=== PATIENT | male | born 1935 | race Caucasian/White ===

== ENCOUNTER 2016-09-25 10:47 | Inpatient (IN) | payer OTHER ==
[2016-09-25] MEDS ORDERED: FUROSEMIDE 20 MG TAB PO PRN (15:04)
[2016-09-25] MEDS: OXYCODONE HYDROCHLORIDE 5 MG TAB PO PRN ×2 (15:32→20:11)
[2016-09-25] MEDS ORDERED: PREDNISONE 5 MG TAB ONE (20:00)
[2016-09-25] MEDS: DOCUSATE SODIUM 100 MG SGL PO SCH (20:08)
[2016-09-25] MEDS: PREDNISONE 10 MG TAB PO SCH (20:08)
[2016-09-25] MEDS ORDERED: PREDNISONE 10 MG TAB PO SCH (21:00)
[2016-09-26] MEDS: OXYCODONE HYDROCHLORIDE 5 MG TAB PO PRN ×2 (03:55→20:24)
[2016-09-26] MEDS: ASPIRIN 81 MG CHEWABLE CTB PO SCH (10:30)
[2016-09-26] MEDS: DOCUSATE SODIUM 100 MG SGL PO SCH ×2 (10:30→20:24)
[2016-09-26] MEDS: NICOTINE 21 MG PATCH TOP SCH (10:31)
[2016-09-26] MEDS ORDERED: PREDNISONE 5 MG TAB ONE ×2 (10:39→20:22)
[2016-09-26] MEDS: PREDNISONE 10 MG TAB PO SCH ×2 (10:43→20:24)
[2016-09-27] MEDS: OXYCODONE HYDROCHLORIDE 5 MG TAB PO PRN (08:32)
[2016-09-27] MEDS: NICOTINE 21 MG PATCH TOP SCH (08:33)
[2016-09-27] MEDS: DOCUSATE SODIUM 100 MG SGL PO SCH ×2 (08:33→21:10)
[2016-09-27] MEDS: ASPIRIN 81 MG CHEWABLE CTB PO SCH (08:33)
[2016-09-27] MEDS: POLYETHYLENE GLYCOL 17 GM/1 TBS PDS PO SCH (08:34)
[2016-09-27] MEDS: MAGNESIUM HYDROXIDE 30 ML SUS PO SCH ×2 (08:34→21:10)
[2016-09-27] MEDS ORDERED: PREDNISONE 5 MG TAB ONE ×2 (08:35→21:06)
[2016-09-27] MEDS: PREDNISONE 10 MG TAB PO SCH ×2 (08:36→21:11)
[2016-09-28] MEDS ORDERED: BISACODYL 10 MG SUP PR PRN (09:05)
[2016-09-28] MEDS: NICOTINE 21 MG PATCH TOP SCH (09:44)
[2016-09-28] MEDS: POLYETHYLENE GLYCOL 17 GM/1 TBS PDS PO SCH (09:45)
[2016-09-28] MEDS: ASPIRIN 81 MG CHEWABLE CTB PO SCH (09:45)
[2016-09-28] MEDS: MAGNESIUM HYDROXIDE 30 ML SUS PO SCH ×2 (09:45→20:29)
[2016-09-28] MEDS: DOCUSATE SODIUM 100 MG SGL PO SCH ×2 (09:45→20:29)
[2016-09-28] MEDS: PREDNISONE 10 MG TAB PO SCH ×2 (09:46→20:41)
[2016-09-28] MEDS: OXYCODONE HYDROCHLORIDE 5 MG TAB PO PRN (17:01)
[2016-09-29 08:08] VITALS: PULSE 67; RESP 18; TEMP 97.6; O2SAT 95
[2016-09-29 08:09] VITALS: BP 113/73
[2016-09-29] MEDS: ASPIRIN 81 MG CHEWABLE CTB PO SCH (08:44)
[2016-09-29] MEDS: PREDNISONE 10 MG TAB PO SCH (08:44)
[2016-09-29] MEDS: POLYETHYLENE GLYCOL 17 GM/1 TBS PDS PO SCH (08:45)
[2016-09-29] MEDS: NICOTINE 21 MG PATCH TOP SCH (08:45)
[2016-09-29] MEDS: MAGNESIUM HYDROXIDE 30 ML SUS PO SCH (08:45)
[2016-09-29] MEDS: DOCUSATE SODIUM 100 MG SGL PO SCH (08:45)
[2016-09-29] MEDS: OXYCODONE HYDROCHLORIDE 5 MG TAB PO PRN (15:26)
[2016-09-30] MEDS ORDERED: PREDNISONE 10 MG TAB PO SCH (09:00)
== END 2016-09-29 15:40 | disposition home or self-care (01) | DRG 950 ==
LOC: ACUTE CARE 14:33
PROVIDERS: ADMIT Family Medicine; ATTEND Family Medicine
PROC: F01ZDFZ Gait and/or Balance Assessment using Assistive, Adaptive, Supportive or Protective Equipment (ICD-10-PCS; principal; 2016-09-25)
PROC: F01ZBZZ Bed Mobility Assessment (ICD-10-PCS; 2016-09-25)
PROC: F01ZCZZ Transfer Assessment (ICD-10-PCS; 2016-09-25)
PROC: F02Z1ZZ Dressing Assessment (ICD-10-PCS; 2016-09-25)
PROC: F02Z0ZZ Bathing/Showering Assessment (ICD-10-PCS; 2016-09-25)
PROC: F02Z3ZZ Grooming/Personal Hygiene Assessment (ICD-10-PCS; 2016-09-25)
DX: Z48.89 Encounter for other specified surgical aftercare (principal); F17.210 Nicotine dependence, cigarettes, uncomplicated; K59.00 Constipation, unspecified
CPT/HCPCS: A4450; A6232

== ENCOUNTER 2016-11-10 19:10 | Emergency (ER) | payer OTHER ==
[2016-11-10] MEDS ORDERED: KETOROLAC TROMETHAMINE 30 MG/ML SOL IM ONE (19:51)
[2016-11-10 20:06] VITALS: BP 116/74; PULSE 100; RESP 20; TEMP 97; O2SAT 99
[2016-11-10] MEDS ORDERED: KETOROLAC TROMETHAMINE 30 MG/ML SOL ONE (20:07)
== END 2016-11-10 20:35 | disposition home or self-care (01) | DRG 392 ==
LOC: ED 19:10
DX: K59.00 Constipation, unspecified (principal)
CPT/HCPCS: 74020; 99284; J1885

== ENCOUNTER 2018-05-31 08:37 | Emergency (ER) | payer OTHER ==
[2018-05-31 08:56] LABS: BASOPHILS % (AUTO) 1 % (0-3); EOSINOPHILS % (AUTO) 0 % (0-9); HEMATOCRIT 42 % (39-53); HEMOGLOBIN 13.8 gm/dl (13.5-17.7); LYMPHOCYTES % (AUTO) 7.1 % (10-50); MEAN CORPUSCULAR HEMOGLOBIN 29.7 pg (27.0-32.0); MEAN CORPUSCULAR HGB CONC 33.3 gm/dl (32.0-36.0); MEAN CORPUSCULAR VOLUME 89 fL (80-100); MONOCYTES % (AUTO) 12.6 % (0-12); NEUTROPHILS % (AUTO) 79.6 % (37-80)
[2018-05-31 08:58] VITALS: TEMP 97.3
[2018-05-31 09:09] LABS: ALBUMIN 3.1 gm/dl (3.4-5.0); BILIRUBIN,TOTAL 0.9 mg/dl (0.2-1.0); CALCIUM 8.8 mg/dl (8.5-10.1); CREATININE 1.22 mg/dl (0.80-1.30); TOTAL PROTEIN 6.9 gm/dl (6.4-8.2)
[2018-05-31 09:13] LABS: CARBON DIOXIDE 25.6 mEq/L (21-32)
[2018-05-31 09:32] LABS: APPEARANCE,URINE Clear; BILIRUBIN,URINE 1+ (NEGATIVE); COLOR,URINE Yellow; GLUCOSE, URINE (UA) NEGATIVE (NEGATIVE); KETONES,URINE TRACE (NEGATIVE); LEUKOCYTE ESTERASE ,URINE NEGATIVE (NEGATIVE); NITRATE,URINE NEGATIVE (NEGATIVE); OCCULT BLOOD,URINE TRACE LYSED (NEG-TRACE); PH,URINE 6.5
[2018-05-31 09:44] LABS: ICTOTEST,URINE NEGATIVE (NEGATIVE); RBC,URINE 0-1 (0-3AV/HPF)
[2018-05-31 09:45] LABS: BACTERIA 1+ (< 1+); CRYSTALS NEGATIVE (0-3 AVE/HPF); EPITHELIAL CELLS 0-1 (SQUAMOUS); WBC,URINE NEGATIVE (0-5AV/HPF)
[2018-05-31] MEDS ORDERED: SODIUM CHLORIDE 0.9% 1000ML 1,000 ML IV ONE (09:54)
[2018-05-31 10:36] VITALS: RESP 23
[2018-05-31 13:04] VITALS: BP 111/72; PULSE 75; O2SAT 96
== END 2018-05-31 12:52 | disposition home or self-care (01) | DRG 446 ==
LOC: ED 08:37
DX: K80.80 Other cholelithiasis without obstruction (principal)
CPT/HCPCS: 74019; 80053; 81001; 85025; 96365; 99283; 99285

== ENCOUNTER 2018-06-01 19:13 | Inpatient (IN) | payer OTHER ==
[2018-06-01 19:57] LABS: HEMATOCRIT 38 % (39-53); HEMOGLOBIN 12.1 gm/dl (13.5-17.7); MEAN CORPUSCULAR VOLUME 91 fL (80-100)
[2018-06-01 20:04] LABS: INR 1.07 (0.86-1.12)
[2018-06-01 20:13] LABS: BAND NEUTROPHILS % (MANUAL) 7 %; BASOPHILS % (MANUAL) 0 % (0-3); EOSINOPHILS % (MANUAL) 0 % (0-9); LYMPHOCYTES % (MANUAL) 5 % (10-50); MONOCYTES % (MANUAL) 4 % (0-12); NEUTROPHILS % (MANUAL) 84 % (37-80); NORMAL RBCS PRESENT
[2018-06-01 20:14] LABS: ALBUMIN 2.6 gm/dl (3.4-5.0); BILIRUBIN,TOTAL 1.1 mg/dl (0.2-1.0); CALCIUM 8.4 mg/dl (8.5-10.1); CARBON DIOXIDE 26.9 mEq/L (21-32); CREATININE 1.24 mg/dl (0.80-1.30); CRP INFLAMMATORY 11.91 mg/dl (0.00-0.33); POTASSIUM 3.7 mMol/L (3.5-5.1); TOTAL PROTEIN 6.3 gm/dl (6.4-8.2)
[2018-06-01 20:46] LABS: APPEARANCE,URINE Clear; BILIRUBIN,URINE 2+ (NEGATIVE); COLOR,URINE Amber; GLUCOSE, URINE (UA) TRACE (NEGATIVE); KETONES,URINE TRACE (NEGATIVE); LEUKOCYTE ESTERASE ,URINE NEGATIVE (NEGATIVE); NITRATE,URINE NEGATIVE (NEGATIVE); OCCULT BLOOD,URINE TRACE INTACT (NEG-TRACE); PH,URINE 5.5; UROBILINOGEN,URINE >=8.0 (0.2-1.0 EU)
[2018-06-01 20:55] LABS: ICTOTEST,URINE POSITIVE (NEGATIVE); RBC,URINE 0-2 (0-3AV/HPF)
[2018-06-01 20:56] LABS: BACTERIA 1+ (< 1+); CRYSTALS 1+ AMORPH (0-3 AVE/HPF)
[2018-06-01] MEDS ORDERED: IBUPROFEN 400 MG TAB PO PRN (22:06)
[2018-06-01] MEDS ORDERED: FUROSEMIDE 20 MG TAB PO PRN (22:06)
[2018-06-01] MEDS ORDERED: SODIUM CHLORIDE 0.9% 1000ML 1,000 ML IV ONE (22:10)
[2018-06-01] MEDS ORDERED: TEMAZEPAM 15MG 15 MG CAP PO PRN (22:13)
[2018-06-01] MEDS ORDERED: CEFTRIAXONE 1 GM PDS 1 GM in SODIUM CHLORIDE 0.9% 50 ML 50 ML IV SCH (22:15)
[2018-06-01] MEDS ORDERED: SODIUM CHLORIDE 0.9% 50 ML 50 ML IV ONE (22:40)
[2018-06-01] MEDS ORDERED: CEFTRIAXONE 1 GM PDS ONE (22:40)
[2018-06-02] MEDS ORDERED: HYDROMORPHONE 1 MG/ML SYRINGE IV PRN (00:52)
[2018-06-02] MEDS ORDERED: HYDROMORPHONE 1 MG/ML SYRINGE ONE (00:57)
[2018-06-02] MEDS: DEXTROSE/SALINE 0.45/KCL 20MEQ 1,000 ML/1,000 ML SOL IV SCH ×2 (01:04→08:56)
[2018-06-02] MEDS: KETOROLAC TROMETHAMINE 30 MG/ML SOL IV PRN ×2 (05:47→09:55)
[2018-06-02 05:52] VITALS: TEMP 97.4
[2018-06-02 07:27] LABS: ALBUMIN 2.3 gm/dl (3.4-5.0); BILIRUBIN,TOTAL 2.1 mg/dl (0.2-1.0); CALCIUM 8.4 mg/dl (8.5-10.1); CARBON DIOXIDE 24.8 mEq/L (21-32); CREATININE 1.69 mg/dl (0.80-1.30); TOTAL PROTEIN 5.6 gm/dl (6.4-8.2)
[2018-06-02 07:29] LABS: HEMATOCRIT 36 % (39-53); HEMOGLOBIN 11.8 gm/dl (13.5-17.7); MEAN CORPUSCULAR HEMOGLOBIN 29.6 pg (27.0-32.0); MEAN CORPUSCULAR HGB CONC 32.6 gm/dl (32.0-36.0); MEAN CORPUSCULAR VOLUME 91 fL (80-100)
[2018-06-02 07:36] LABS: POTASSIUM 2.9 mMol/L (3.5-5.1)
[2018-06-02 08:04] LABS: BAND NEUTROPHILS % (MANUAL) 7 %; BASOPHILS % (MANUAL) 0 % (0-3); EOSINOPHILS % (MANUAL) 1 % (0-9); LYMPHOCYTES % (MANUAL) 2 % (10-50); MONOCYTES % (MANUAL) 13 % (0-12); NEUTROPHILS % (MANUAL) 77 % (37-80); NORMAL RBCS NORMAL RBCS
[2018-06-02] MEDS ORDERED: SODIUM CHLORIDE 0.9% 1000ML 1,000 ML IV ONE ×4 (08:12→10:10)
[2018-06-02] MEDS ORDERED: POTASSIUM CHLORIDE 2 MEQ/ML 40 MEQ, LIDOCAINE HCL 1% MDV 2 ML in SODIUM CHLORIDE 0.9% 5... IV ONE (08:26)
[2018-06-02] MEDS ORDERED: LIDOCAINE HCL 1% MPF 30 SOL ONE (08:30)
[2018-06-02] MEDS ORDERED: POTASSIUM CHLORIDE 2 MEQ/ML SOL IV ONE (08:30)
[2018-06-02] MEDS ORDERED: POTASSIUM CHLORIDE 2 MEQ/ML 60 MEQ, LIDOCAINE HCL 1% MDV 2 ML in SODIUM CHLORIDE 0.9% 1... IV ONE (08:36)
[2018-06-02 08:58] VITALS: RESP 28
[2018-06-02] MEDS ORDERED: ASPIRIN 81 MG CHEWABLE CTB PO SCH (09:00)
[2018-06-02] MEDS ORDERED: PIPERACILLIN/TAZOBACT 3.375 GM 3.375 GM in SODIUM CHLORIDE 0.9% 100 ML 100 ML IV ONE (09:35)
[2018-06-02] MEDS ORDERED: PIPERACILLIN/TAZOBACT 3.375 GM PDS IV ONE (09:39)
[2018-06-02] MEDS ORDERED: NOREPINEPHRINE 4 MG/4 ML 4 MG in DEXTROSE 500 ML 500 ML IV SCH (09:45)
[2018-06-02] MEDS ORDERED: NOREPINEPHRINE BITARTRATE 4 MG/4 ML SOL IV ONE (09:51)
[2018-06-02] MEDS ORDERED: FENTANYL 100MCG/2ML SOL IV ONE (10:08)
[2018-06-02 12:03] VITALS: BP 103/72; PULSE 82; O2SAT 92
== END 2018-06-02 10:30 | disposition short-term general hospital (02) | DRG 446 ==
LOC: ED 19:13 → ACUTE CARE 21:31
PROVIDERS: ADMIT Family Medicine; ATTEND Family Medicine
DX: K81.0 Acute cholecystitis (principal); R50.9 Fever, unspecified; I10 Essential (primary) hypertension; E87.6 Hypokalemia
CPT/HCPCS: 36415; 71046; 80053; 81001; 85007; 85027; 85610; 87040; 87088; 99070; 99222; 99282; J0696; J1885; J2543; J3010; J3480; A9270-GY; J1170; J2001; J3490

== ENCOUNTER 2018-06-13 18:28 | Observation (INO) | payer OTHER ==
[2018-06-13] MEDS ORDERED: FUROSEMIDE 20mg SOL IV ONE (20:30)
[2018-06-13] MEDS: SODIUM CHLORIDE 0.9% FLUSH 10 ML SOL IV SCH (21:36)
[2018-06-13] MEDS ORDERED: IBUPROFEN 600 MG TAB PO PRN (22:50)
[2018-06-14] MEDS: SODIUM CHLORIDE 0.9% FLUSH 10 ML SOL IV SCH ×3 (06:18→23:46)
[2018-06-14 07:25] LABS: ALBUMIN 2.1 gm/dl (3.4-5.0); BILIRUBIN,TOTAL 0.4 mg/dl (0.2-1.0); CALCIUM 8.2 mg/dl (8.5-10.1); CARBON DIOXIDE 29.6 mEq/L (21-32); POTASSIUM 3.6 mMol/L (3.5-5.1); TOTAL PROTEIN 5.7 gm/dl (6.4-8.2)
[2018-06-14] MEDS ORDERED: FUROSEMIDE 40 MG SOL IV ONE (08:31)
[2018-06-14 09:18] VITALS: TEMP 97.7
[2018-06-14] MEDS: POTASSIUM CHLORIDE 10 MEQ CAPSULE PO SCH (09:18)
[2018-06-14 16:44] VITALS: O2SAT 97
[2018-06-15 00:23] VITALS: BP 120/66; PULSE 68; RESP 14
[2018-06-15] MEDS: SODIUM CHLORIDE 0.9% FLUSH 10 ML SOL IV SCH ×2 (07:26→15:04)
[2018-06-15] MEDS: POTASSIUM CHLORIDE 10 MEQ CAPSULE PO SCH (10:11)
== END 2018-06-15 15:14 | disposition home or self-care (01) | DRG 951 ==
LOC: ACUTE CARE 18:28 → INTOOBSV 18:28
PROVIDERS: ADMIT Family Medicine; ATTEND Family Medicine
DX: Z98.890 Other specified postprocedural states (principal); K75.0 Abscess of liver; R19.7 Diarrhea, unspecified; R60.9 Edema, unspecified; J44.9 Chronic obstructive pulmonary disease, unspecified
CPT/HCPCS: 36415; 80053; 82272; J1940; A6219; A9270-GY

== ENCOUNTER 2019-02-07 12:27 | Emergency (ER) | payer OTHER ==
[2019-02-07] MEDS ORDERED: SODIUM CHLORIDE 0.9% FLUSH 10 ML SOL IV PRN (12:31)
[2019-02-07] MEDS ORDERED: NITROGLYCERIN 0.4 MG TAB SL PRN (12:31)
[2019-02-07] MEDS ORDERED: ASPIRIN 81 MG CHEWABLE CTB PO STA (12:31)
[2019-02-07] MEDS ORDERED: NITROGLYCERIN 0.4 MG TAB SL ONE (12:33)
[2019-02-07] MEDS ORDERED: ASPIRIN 81 MG CHEWABLE CTB ONE (12:33)
[2019-02-07 12:34] LABS: BASOPHILS % (AUTO) 1 % (0-3); EOSINOPHILS % (AUTO) 3 % (0-9); HEMATOCRIT 42 % (39-53); HEMOGLOBIN 13.6 gm/dl (13.5-17.7); LYMPHOCYTES % (AUTO) 18.3 % (10-50); MEAN CORPUSCULAR HEMOGLOBIN 30.3 pg (27.0-32.0); MEAN CORPUSCULAR HGB CONC 32.2 gm/dl (32.0-36.0); MEAN CORPUSCULAR VOLUME 94 fL (80-100); MONOCYTES % (AUTO) 8.5 % (0-12); NEUTROPHILS % (AUTO) 69.3 % (37-80)
[2019-02-07 12:45] VITALS: TEMP 97.4
[2019-02-07 13:01] LABS: ALBUMIN 3.2 gm/dl (3.4-5.0); ALKALINE PHOSPHATASE 118 IU/L (46-116); ALT 29 IU/L (14-63); AST 15 IU/L (15-37); BILIRUBIN,TOTAL 0.3 mg/dl (0.2-1.0); BLOOD UREA NITROGEN 15 mg/dl (7-18); CALCIUM 8.5 mg/dl (8.5-10.1); CARBON DIOXIDE 27.4 mEq/L (21-32); CHLORIDE 107 mMol/L (98-107); CREATINE KINASE 41 U/L (39-308); CREATININE 1.04 mg/dl (0.80-1.30); GLUCOSE 92 mg/dl (74-106); TOTAL PROTEIN 6.7 gm/dl (6.4-8.2); TROP I < 0.017 ng/ml (0.000-0.056)
[2019-02-07] MEDS ORDERED: HEPARIN SODIUM 5000 U/ML SOL IV ONE (15:28)
[2019-02-07] MEDS ORDERED: HEPARIN SODIUM 5000 U/ML SOL ONE (15:33)
[2019-02-07 16:25] VITALS: O2SAT 98
[2019-02-07 16:26] VITALS: BP 119/69; PULSE 50; RESP 16
== END 2019-02-07 16:15 | disposition short-term general hospital (02) | DRG 282 ==
LOC: ED 12:27 → SUPCPDRO 12:27 → ED 16:15
DX: I21.4 Non-ST elevation (NSTEMI) myocardial infarction (principal); M79.601 Pain in right arm; R68.84 Jaw pain; R07.89 Other chest pain
CPT/HCPCS: 36415; 71045; 80053; 82550; 84484; 85025; 85610; 85730; 93005; 96374; 99284; 99285; J1644; A9270-GY

== ENCOUNTER 2019-02-28 12:09 | Outpatient (CLI) | payer OTHER | END 2019-02-28 12:10 | disposition home or self-care (01) | LOC: CONVCARE 12:09 ==